=== PATIENT | male | born 1960 | race Caucasian/White ===

== ENCOUNTER 2018-12-02 03:48 | Emergency (ER) | payer OTHER ==
[~2018-12-02] VITALS: Ht 175.3 cm; Wt 90.8 kg
[2018-12-02 03:55] VITALS: Ht 175.3 cm; Wt 90.8 kg
[2018-12-02 05:29] VITALS: BP 116/72
== END 2018-12-02 03:59 | disposition left against medical advice (07) ==
LOC: EDBD 03:48 → ED 03:48
DX: Z53.21 Procedure and treatment not carried out due to patient leaving prior to being seen by health care provider (principal)